=== PATIENT | male | born 1970 | race Caucasian/White ===

== ENCOUNTER 2016-12-28 13:51 | Emergency (ER) | payer OTHER ==
--- NOTE | 2016-12-28 16:15 | ED ORDER SUMMARY ---
..... Patient: TIM TAPIA OrderSheet [facility] VisitID: [id number] [place] [address] 46y, M Registration Date/Time: 12/28/2016 ORDER SHEET Weight: 96.1 kg (stated) Allergies: Penicillin GENERAL ORDERS: UA-Culture if indicated Urgent (14:06 12/28/2016 EKoroleva P.A.-C) (14:07 LWhalen R.N.) CBC w Diff Urgent (14:06 12/28/2016 EKoroleva P.A.-C) (Ack 14:09 KHoerner) (14:24 LWhalen R.N.) CMP Urgent (14:06 12/28/2016 EKoroleva P.A.-C) (Ack 14:09 KHoerner) (14:24 LWhalen R.N.) US Kidney/Renal Complete (No) Urgent (14:34 12/28/2016 EKoroleva P.A.-C) (Ack 14:35 KHoerner) MEDICATION ORDERS: IV FLUIDS: Toradol IV 30 mg (NOW) (14:06 12/28/2016 EKoroleva P.A.-C) (14:32 LWhalen R.N.) IV Saline Lock (14:06 12/28/2016 EKoroleva P.A.-C) (14:32 LWhalen R.N.) Dilaudid IV 1 mg (HIGH ALERT MEDICATION, NOW) (14:55 12/28/2016 EKoroleva P.A.-C) (15:05 LWhalen R.N.) Dilaudid IV 2 mg (HIGH ALERT MEDICATION, NOW) (16:16 12/28/2016 EKoroleva P.A.-C) (16:18 LWhalen R.N.) ORDER SHEET NOTES: [Electronically signed by Karen Dubois PBandarA.-C (16:45 12/28/2016)] [Electronically signed by Jaqueline Lemus R.N. (11:36 12/29/2016)] [Electronically locked/signed by Jaqueline Lemus R.N. (11:36 12/29/2016)]
--- NOTE | 2016-12-28 16:15 | ED ORDER SUMMARY ---
..... Patient: TIM TAPIA OrderSheet [facility] VisitID: [id number] [place] [address] 46y, M Registration Date/Time: 12/28/2016 ORDER SHEET Weight: 96.1 kg (stated) Allergies: Penicillin GENERAL ORDERS: UA-Culture if indicated Urgent (14:06 12/28/2016 EKoroleva P.A.-C) (14:07 LWhalen R.N.) CBC w Diff Urgent (14:06 12/28/2016 EKoroleva P.A.-C) (Ack 14:09 KHoerner) (14:24 LWhalen R.N.) CMP Urgent (14:06 12/28/2016 EKoroleva P.A.-C) (Ack 14:09 KHoerner) (14:24 LWhalen R.N.) US Kidney/Renal Complete (No) Urgent (14:34 12/28/2016 EKoroleva P.A.-C) (Ack 14:35 KHoerner) MEDICATION ORDERS: IV FLUIDS: Toradol IV 30 mg (NOW) (14:06 12/28/2016 EKoroleva P.A.-C) (14:32 LWhalen R.N.) IV Saline Lock (14:06 12/28/2016 EKoroleva P.A.-C) (14:32 LWhalen R.N.) Dilaudid IV 1 mg (HIGH ALERT MEDICATION, NOW) (14:55 12/28/2016 EKoroleva P.A.-C) (15:05 LWhalen R.N.) Dilaudid IV 2 mg (HIGH ALERT MEDICATION, NOW) (16:16 12/28/2016 EKoroleva P.A.-C) (16:18 LWhalen R.N.) ORDER SHEET NOTES: [Electronically signed by Karen Dubois PBandarA.-C (16:45 12/28/2016)] [Electronically signed by Jaqueline Lemus R.N. (11:36 12/29/2016)] [Electronically locked/signed by Jaqueline Lemus R.N. (11:36 12/29/2016)]
--- NOTE | 2016-12-28 16:15 | ED CLINICAL REPORT ---
Clinical Report - Physicians/Mid Levels [facility] [address] [place] [address] 12/28/2016 13:52 Patient: TIM TAPIA Time Seen: 1440 Dec 28 2016. Arrived- By private vehicle. Historian- patient. HISTORY OF PRESENT ILLNESS Chief Complaint: FLANK PAIN. This started just prior to arrival and is still present. It is described as "pain". No vomiting. (Patient presents with left flank pain radiating to his gone over the last 2 weeks, history of similar with nephrolithiasis. Restart urine. Denies dysuria urgency or frequency. Denies fevers. Denies emesis or diarrhea.). REVIEW OF SYSTEMS No constipation, black stools, urinary frequency or blurred vision. He has had difficulty with urination. All systems otherwise negative, except as recorded above. PAST HISTORY Problems: Fractured Metatarsal. Prior Injury, Same Area. Substance Abuse. Constipation. Abdominal Pain. Diverticulosis. Asthma. Gastroesophageal Reflux. Crush Injury. Hernia. Laceration. Soft Tissue Foreign Body. Contusion. Hypertension. Gastroesophageal Reflux Disease. Tetanus Status. Immunizations. Additional Surgeries: Hernia Repair. Stomach foreign body removed. Medications: Omeprazole Oral. Ventolin HFA Inhalation, as needed. Allergies: Penicillin. SOCIAL HISTORY Former smoker. No alcohol use. ADDITIONAL NOTES The nursing notes have been reviewed. PHYSICAL EXAM Vital Signs: 12/28/2016 16:25 BP: 138/100. HR: 77. RR: 18. O2 saturation: 97%. Temp: 98.4 F. Appearance: Alert. Eyes: Eyes normal inspection. ENT: Ears normal. Neck: Normal inspection. CVS: Normal heart rate and rhythm. Heart sounds normal. Respiratory: No respiratory distress. Breath sounds normal. No accessory muscle use. Abdomen: Soft. No mass. Femoral pulses equal. No abdominal tenderness. Back: Normal inspection. Skin: Skin warm. Neuro: Oriented X 3. LABS, X-RAYS, AND EKG Laboratory Tests: UA-Culture if indicated: (CAMI: 12/28/2016 14:00) ( MsgRcvd 12/28/2016 14:32) Final results Test Result Flag Units (Reference) URINE COLOR YELLOW URINE APPEARANCE HAZY URINE GLUCOSE NEGATIVE (NEGATIVE) URINE BILIRUBIN NEGATIVE (NEGATIVE) URINE KETONE NEGATIVE (NEGATIVE) URINE SPECIFIC GRAVITY 1.015 (1.010-1.030) URINE PH 6.5 (5.0-8.0) URINE PROTEIN NEGATIVE (NEGATIVE) URINE UROBILINOGEN 0.2 EU/dL (0.2-1.0) URINE NITRITE NEGATIVE (NEGATIVE) URINE BLOOD 3+ (NEGATIVE) URINE LEUK ESTERASE NEGATIVE (NEGATIVE) URINE RBC 75-100 rbc/hpf (0-1) URINE WBC 0-1 wbc/hpf (0-1) URINE EPITHELIAL CELLS 0-1 EPI/hpf (0-5) URINE BACTERIA NONE SEEN (NONE SEEN) URINE COMMENT CULT NOT INDICATED 3+ MUCUSURINE CULTURES ARE SET-UP BASED ON THE FOLLOWING CRITERIA:POSITIVE NITRITEPOSITIVE LEUKOCYTE ESTERASEGREATER THAN 10 WHITE BLOOD CELLSMODERATE (2+) OR GREATER BACTERIA CBC w Diff: (CAMI: 12/28/2016 14:25) ( [facility] 12/28/2016 14:37) Final results Test Result Flag Units (Reference) WHITE BLOOD COUNT 7.9 K/uL (4.5-11.5) RED BLOOD COUNT 4.42 L M/uL (4.50-5.90) HEMOGLOBIN 13.9 gm/dL (13.5-17.5) HEMATOCRIT 42.0 % (41.0-53.0) MEAN CELL VOLUME 95 fL (80-100) MEAN CORPUSCULAR HGB 32 pg (26-34) MEAN CORPUSCULAR HGB CONC 33 g/dL (31-37) RED CELL DISTRIBUTION WIDTH 13.8 % (11.6-14.8) PLATELET COUNT 236 K/uL (150-400) NEUTROPHIL % 71.2 % (50-75) LYMPH % 21.1 L % (25-40) MONO % 6.2 % (3-14) EOSINOPHIL % 1.2 % (0-4) BASOPHIL % 0.3 % (0-2) CMP: (CAMI: 12/28/2016 14:25) ( [facility] 12/28/2016 14:51) Final results Test Result Flag Units (Reference) GLUCOSE 114 H mg/dL (70-110) BUN 12 mg/dL (7-18) CREATININE 0.9 mg/dL (0.6-1.3) Estimated GFR >60 mL/min Estimated GFR- >60 mL/min Note: Persistent reduction over 3 months in eGFR<60 mL/min/1.73 m2 defines CKD. Patients with eGFR values>=60 mL/min/1.73 m2 may also have CKD if evidence ofpersistent proteinuria. Additional information may be foundat www.kidney.org. SODIUM 146 H mmol/L (136-145) POTASSIUM 4.0 mmol/L (3.5-5.1) CHLORIDE 108 H mmol/L (98-107) CARBON DIOXIDE 25 mmol/L (21-32) CALCIUM 8.9 mg/dL (8.5-10.1) TOTAL PROTEIN 7.3 g/dL (6.4-8.2) ALBUMIN 4.0 g/dL (3.3-5.0) BILIRUBIN, TOTAL 0.6 mg/dL (0.0-1.0) ALKALINE PHOSPHATASE 82 U/L (46-116) AST (SGOT) 20 U/L (15-37) ALT (SGPT) 34 U/L (12-78) . Note - Tests: (US: renal, no signs of large nephorlithiasis/ hydro). PROGRESS AND PROCEDURES Course of Care: no signs of acute surgical abdomen. 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 Signs of likely nephrolithiasis, ultrasound does not show any large nephrolithiasis, patient with history of similar, encourage patient to establish urology care. 12/28/2016 16:25 BP: 138/100. HR: 77. RR: 18. O2 saturation: 97%. Temp: 98.4 F. Patient is stable. Patient/family counseled. Disposition: Discharged. Condition: good. CLINICAL IMPRESSION Left renal colic with calculus with hematuria. No hydronephrosis or urinary tract infection. INSTRUCTIONS Drink plenty of fluids. (Urology: [phone]). Prescription Medications: Zofran (orally disintegrating tablets) 4 mg: take 1 orally every 6 hours for 3 days as needed for nausea. Dispense fifteen (15). Substitution is permissible. Percocet 5 mg/325 mg: take 1 tablet orally every 6 hours as needed for pain. Dispense twenty (20). Substitution is permissible. Flomax 0.4 mg: take 1 orally every 24 hours. Dispense ten (10). Substitution is permissible. Follow-up: Follow up with a specialist UROLOGY. (Electronically signed by Karen Dubois P.A.-C 12/28/2016 16:45)
--- NOTE | 2016-12-28 16:15 | ED NURSING NOTES ---
Clinical Report - Nurses [facility] [address] [place] [address] 12/28/2016 13:52 Patient: TIM TAPIA TRIAGE Triage time 13:57 Dec 28 2016. Acuity: LEVEL 3. Chief Complaint: PAIN WITH URINATION and (Aching left side in front and back). CATA COMA SCORE: Cata Coma Scale: 15- eyes open spontaneously (4); best verbal response- oriented x 4 (5); best motor response- obeys commands (6). --14:06 Jaqueline Lemus R.N. 13:57 12/28/16. BP: 137/107. HR: 98. RR: 18. O2 saturation: 98%. Temp: 98.1 F. Pain level now 8/10. --14:06 Jaqueline Lemus R.N. Weight: 96.1 kg stated. Height/Length: 72 inches Per Patient. BMI: 28.8. --13:59 Jaqueline Lemus R.N. Medications Ventolin HFA Inhalation, as needed. --13:57 Jaqueline Lemus R.N. Omeprazole Oral. --13:59 Jaqueline Lemus R.N. The following entry was struck by Jaqueline Lemus R.N., 13:59 (12/28/16) Reason - other. <<STRICKEN ENTRY-- Heartburn medication. --13:57 Jaqueline Lemus R.N. --END STRIKE>>. Allergies Penicillin. --13:57 Jaqueline Lemus R.N. History Arrived by private vehicle. Historian: patient. Onset. (2 weeks). He has had discomfort with urination and urgency of urination. No fever. PAST MEDICAL HX: Immunizations: up-to-date. SOCIAL HX: Former smoker, end date 2008. Occasional alcohol use; consumes two beers. No drug use. SELF HARM ASSESSMENT: A self harm assessment was performed. The patient answered "no" to the question "Have you recently felt down, depressed, or hopeless?" and "Do you have thoughts of harming or killing yourself?". FALL RISK ASSESSMENT: Fall risk assessment completed. No fall risk identified. NUTRITIONAL RISK ASSESSMENT: The nutritional risk assessment revealed no deficiencies. FUNCTIONAL ASSESSMENT: Functional assessment: no impairments noted. LEARNING NEEDS ASSESSMENT: The learning needs assessment revealed no barriers. ABUSE ASSESSMENT: Abuse assessment: (yes) The patient was asked "Do you feel safe in your home?". SKIN INTEGRITY ASSESSMENT: Skin integrity risk assessment completed. No skin integrity risk identified. --14:06 Jaqueline Lemus R.N. PROBLEMS: Fractured Metatarsal. Prior Injury, Same Area. Substance Abuse. Constipation. Abdominal Pain. Diverticulosis. Asthma. Gastroesophageal Reflux. Crush Injury. Hernia. Laceration. Soft Tissue Foreign Body. Contusion. Hypertension. Gastroesophageal Reflux Disease. Tetanus Status. Immunizations. --13:58 Jaqueline Lemus R.N. Ureterolithiasis [RuleOut]. Hematuria [RuleOut]. --13:58 Jaqueline Lemus R.N. ADDITIONAL SURGERIES: Hernia Repair. Stomach foreign body removed. --13:58 Jaqueline Lemus R.N. Interventions ID band on patient. --14:06 Jaqueline Lemus R.N. PHYSICAL ASSESSMENT Ambulatory to room. GENERAL / NEURO / PSYCH: Alert. Oriented X 4. Appears in no acute distress. HEENT: Mucous membranes are pink. RESPIRATORY: Respirations not labored. Breath sounds within normal limits. CVS: Normal heart rate and rhythm. GI / : Abdominal tenderness. Burning with urination. SKIN: Skin is warm and dry. --14:07 Jaqueline Lemus R.N. NURSING PROGRESS NOTES The initial plan of care for this patient includes an assessment with efforts to address patient positioning, appropriate ambient lighting and comfortable environmental temperature; impairment of the genitourinary system. Pulse oximeter and NIBP monitor placed on patient. Patient gowned. Head of bed elevated 75 degrees. Reassurance given. Call light placed in reach. Side rails up x 1. Bed placed in lowest position. Brakes of bed on. --14:07 Jaqueline Lemus R.N. 14:32 12/28/2016 Site #1 started via IV in the right antecubital space with an 20g angiocath, with aseptic technique and good blood return; one attempt. Blood drawn: rainbow set. Labeled in the presence of the patient and sent to the lab. Saline lock flushed with 10 mL saline. --14:32 Jaqueline Lemus R.N. 14:32 12/28/2016 Toradol IVP 30 mg given over 2 minute(s) via site #1. Allergies verified and confirmed 5 rights. IV patency established. IV site checked: no pain, redness, or swelling. IV flushed thoroughly pre- and post-medication administration. --14:32 Jaqueline Lemus R.N. 15:05 12/28/2016 Dilaudid (HYDROmorphone HCl PF) IVP 1 mg given over 2 minute(s) via site #1. Allergies verified, confirmed 5 rights and sedative warning given to the patient. IV patency established. IV site checked: no pain, redness, or swelling. IV flushed thoroughly pre- and post-medication administration. --15:05 Jaqueline Lemus R.N. 16:18 12/28/2016 Dilaudid (HYDROmorphone HCl PF) IVP 2 mg given over 2 minute(s) via site #1. Allergies verified, confirmed 5 rights and sedative warning given to the patient. IV patency established. IV site checked: no pain, redness, or swelling. IV flushed thoroughly pre- and post-medication administration. --16:18 Jaqueline Lemus R.N. DISPOSITION / DISCHARGE Departure time: Dec 28 2016. Condition at departure: improved. No learning barriers present. Discharge instructions provided and reviewed with the patient. Reviewed warnings. Reviewed medication(s). Treatments reviewed. Reviewed referrals. Patient verbalized understanding. Written instructions provided in Slovenian. The patient was discharged home. He left the Emergency Department ambulatory and via (pt walked here lives next door). --16:29 Jaqueline Lemus R.N. 16:25 12/28/16. BP: 138/100. HR: 77. RR: 18. O2 saturation: 97%. Temp: 98.4 F. Pain level now 5/10. --16:29 Mariah, Jaqueline, R.N. Locked/Released at 12/29/2016 11:36 by Jaqueline Lemus R.N.
--- NOTE | 2016-12-28 16:15 | ED CLINICAL REPORT ---
Clinical Report - Physicians/Mid Levels [facility] [address] [place] [address] 12/28/2016 13:52 Patient: TIM TAPIA Time Seen: 1440 Dec 28 2016. Arrived- By private vehicle. Historian- patient. HISTORY OF PRESENT ILLNESS Chief Complaint: FLANK PAIN. This started just prior to arrival and is still present. It is described as "pain". No vomiting. (Patient presents with left flank pain radiating to his gone over the last 2 weeks, history of similar with nephrolithiasis. Restart urine. Denies dysuria urgency or frequency. Denies fevers. Denies emesis or diarrhea.). REVIEW OF SYSTEMS No constipation, black stools, urinary frequency or blurred vision. He has had difficulty with urination. All systems otherwise negative, except as recorded above. PAST HISTORY Problems: Fractured Metatarsal. Prior Injury, Same Area. Substance Abuse. Constipation. Abdominal Pain. Diverticulosis. Asthma. Gastroesophageal Reflux. Crush Injury. Hernia. Laceration. Soft Tissue Foreign Body. Contusion. Hypertension. Gastroesophageal Reflux Disease. Tetanus Status. Immunizations. Additional Surgeries: Hernia Repair. Stomach foreign body removed. Medications: Omeprazole Oral. Ventolin HFA Inhalation, as needed. Allergies: Penicillin. SOCIAL HISTORY Former smoker. No alcohol use. ADDITIONAL NOTES The nursing notes have been reviewed. PHYSICAL EXAM Vital Signs: 12/28/2016 16:25 BP: 138/100. HR: 77. RR: 18. O2 saturation: 97%. Temp: 98.4 F. Appearance: Alert. Eyes: Eyes normal inspection. ENT: Ears normal. Neck: Normal inspection. CVS: Normal heart rate and rhythm. Heart sounds normal. Respiratory: No respiratory distress. Breath sounds normal. No accessory muscle use. Abdomen: Soft. No mass. Femoral pulses equal. No abdominal tenderness. Back: Normal inspection. Skin: Skin warm. Neuro: Oriented X 3. LABS, X-RAYS, AND EKG Laboratory Tests: UA-Culture if indicated: (CAMI: 12/28/2016 14:00) ( MsgRcvd 12/28/2016 14:32) Final results Test Result Flag Units (Reference) URINE COLOR YELLOW URINE APPEARANCE HAZY URINE GLUCOSE NEGATIVE (NEGATIVE) URINE BILIRUBIN NEGATIVE (NEGATIVE) URINE KETONE NEGATIVE (NEGATIVE) URINE SPECIFIC GRAVITY 1.015 (1.010-1.030) URINE PH 6.5 (5.0-8.0) URINE PROTEIN NEGATIVE (NEGATIVE) URINE UROBILINOGEN 0.2 EU/dL (0.2-1.0) URINE NITRITE NEGATIVE (NEGATIVE) URINE BLOOD 3+ (NEGATIVE) URINE LEUK ESTERASE NEGATIVE (NEGATIVE) URINE RBC 75-100 rbc/hpf (0-1) URINE WBC 0-1 wbc/hpf (0-1) URINE EPITHELIAL CELLS 0-1 EPI/hpf (0-5) URINE BACTERIA NONE SEEN (NONE SEEN) URINE COMMENT CULT NOT INDICATED 3+ MUCUSURINE CULTURES ARE SET-UP BASED ON THE FOLLOWING CRITERIA:POSITIVE NITRITEPOSITIVE LEUKOCYTE ESTERASEGREATER THAN 10 WHITE BLOOD CELLSMODERATE (2+) OR GREATER BACTERIA CBC w Diff: (CAMI: 12/28/2016 14:25) ( [facility] 12/28/2016 14:37) Final results Test Result Flag Units (Reference) WHITE BLOOD COUNT 7.9 K/uL (4.5-11.5) RED BLOOD COUNT 4.42 L M/uL (4.50-5.90) HEMOGLOBIN 13.9 gm/dL (13.5-17.5) HEMATOCRIT 42.0 % (41.0-53.0) MEAN CELL VOLUME 95 fL (80-100) MEAN CORPUSCULAR HGB 32 pg (26-34) MEAN CORPUSCULAR HGB CONC 33 g/dL (31-37) RED CELL DISTRIBUTION WIDTH 13.8 % (11.6-14.8) PLATELET COUNT 236 K/uL (150-400) NEUTROPHIL % 71.2 % (50-75) LYMPH % 21.1 L % (25-40) MONO % 6.2 % (3-14) EOSINOPHIL % 1.2 % (0-4) BASOPHIL % 0.3 % (0-2) CMP: (CAMI: 12/28/2016 14:25) ( [facility] 12/28/2016 14:51) Final results Test Result Flag Units (Reference) GLUCOSE 114 H mg/dL (70-110) BUN 12 mg/dL (7-18) CREATININE 0.9 mg/dL (0.6-1.3) Estimated GFR >60 mL/min Estimated GFR- >60 mL/min Note: Persistent reduction over 3 months in eGFR<60 mL/min/1.73 m2 defines CKD. Patients with eGFR values>=60 mL/min/1.73 m2 may also have CKD if evidence ofpersistent proteinuria. Additional information may be foundat www.kidney.org. SODIUM 146 H mmol/L (136-145) POTASSIUM 4.0 mmol/L (3.5-5.1) CHLORIDE 108 H mmol/L (98-107) CARBON DIOXIDE 25 mmol/L (21-32) CALCIUM 8.9 mg/dL (8.5-10.1) TOTAL PROTEIN 7.3 g/dL (6.4-8.2) ALBUMIN 4.0 g/dL (3.3-5.0) BILIRUBIN, TOTAL 0.6 mg/dL (0.0-1.0) ALKALINE PHOSPHATASE 82 U/L (46-116) AST (SGOT) 20 U/L (15-37) ALT (SGPT) 34 U/L (12-78) . Note - Tests: (US: renal, no signs of large nephorlithiasis/ hydro). PROGRESS AND PROCEDURES Course of Care: no signs of acute surgical abdomen. 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 Signs of likely nephrolithiasis, ultrasound does not show any large nephrolithiasis, patient with history of similar, encourage patient to establish urology care. 12/28/2016 16:25 BP: 138/100. HR: 77. RR: 18. O2 saturation: 97%. Temp: 98.4 F. Patient is stable. Patient/family counseled. Disposition: Discharged. Condition: good. CLINICAL IMPRESSION Left renal colic with calculus with hematuria. No hydronephrosis or urinary tract infection. INSTRUCTIONS Drink plenty of fluids. (Urology: [phone]). Prescription Medications: Zofran (orally disintegrating tablets) 4 mg: take 1 orally every 6 hours for 3 days as needed for nausea. Dispense fifteen (15). Substitution is permissible. Percocet 5 mg/325 mg: take 1 tablet orally every 6 hours as needed for pain. Dispense twenty (20). Substitution is permissible. Flomax 0.4 mg: take 1 orally every 24 hours. Dispense ten (10). Substitution is permissible. Follow-up: Follow up with a specialist UROLOGY. (Electronically signed by Karen Dubois P.A.-C 12/28/2016 16:45)
--- NOTE | 2016-12-28 20:14 | DIAGNOSTIC IMAGING REPORT ---
PROCEDURE: US KIDNEY/RENAL COMPLETE INDICATION: Left abdomen/flank pain TECHNIQUE: Jacinto scale and color Doppler sonographic imaging of the kidneys and urinary bladder was obtained. Intrarenal resistive indices were calculated when appropriate. COMPARISON: CT abdomen pelvis 04/19/2015 FINDINGS: The right kidney measures 11.0 x 6.5 x 4.9 cm. Normal cortical thickness and echogenicity. No hydronephrosis, cyst, solid mass, or shadowing calculus. Normal color Doppler blood flow throughout the kidney. Resistive index in the intraparenchymal artery is 0.57 (midpole) The left kidney measures 11.6 x 6.2 x 5.4 cm Normal cortical thickness and echogenicity. No hydronephrosis, cyst, solid mass, or shadowing calculus. Normal color Doppler blood flow throughout the kidney. Resistive indices in the intrarenal parenchymal arteries range from 0.56-0.59. The filled urinary bladder has a volume of 23 ml and a post void residual of zero. The urinary bladder wall is uniform in thickness without suspicious thickening or irregularity. No bladder mass or debris. The left ureteral jet was not well seen. The right is normal. The visible portion the prostate gland measures approximately 4.5 x 4.0 x 2.4 cm with coarse internal calcification. IMPRESSION: 1. Normal renal morphology. No intrarenal calculi or obstructive uropathy. 2. Normal urinary bladder and prostate morphology.
--- NOTE | 2016-12-29 11:36 | ED MAR SUMMARY ---
..... Medication Administration Record [facility] [address] [place] [address] Patient: TIM TAPIA Visit ID: [id number] 46y, M Weight: 96.1 kg Height/Length: 72 in BMI: 28.8 ALLERGIES: Penicillin Given 14:32 12/28/2016 Jaqueline Lemus R.N. Medication Administered: TORADOL [IVP], Dose: 30 mg IVP over 2 minute(s), Site: #1 right AC. Medication Ordered: Toradol IV 30 mg (NOW). Given 15:05 12/28/2016 Jaqueline Lemus R.N. Medication Administered: DILAUDID [IVP] (HYDROMORPHONE HCL PF), Dose: 1 mg IVP over 2 minute(s), Site: #1 right AC. Medication Ordered: Dilaudid IV 1 mg (HIGH ALERT MEDICATION, NOW). Given 16:18 12/28/2016 Jaqueline Lemus R.N. Medication Administered: DILAUDID [IVP] (HYDROMORPHONE HCL PF), Dose: 2 mg IVP over 2 minute(s), Site: #1 right AC. Medication Ordered: Dilaudid IV 2 mg (HIGH ALERT MEDICATION, NOW).
--- NOTE | 2016-12-29 11:36 | ED MAR SUMMARY ---
..... Medication Administration Record [facility] [address] [place] [address] Patient: TIM TAPIA Visit ID: [id number] 46y, M Weight: 96.1 kg Height/Length: 72 in BMI: 28.8 ALLERGIES: Penicillin Given 14:32 12/28/2016 Jaqueline Lemus R.N. Medication Administered: TORADOL [IVP], Dose: 30 mg IVP over 2 minute(s), Site: #1 right AC. Medication Ordered: Toradol IV 30 mg (NOW). Given 15:05 12/28/2016 Jaquleine Lemus R.N. Medication Administered: DILAUDID [IVP] (HYDROMORPHONE HCL PF), Dose: 1 mg IVP over 2 minute(s), Site: #1 right AC. Medication Ordered: Dilaudid IV 1 mg (HIGH ALERT MEDICATION, NOW). Given 16:18 12/28/2016 Jaqueline Lemus R.N. Medication Administered: DILAUDID [IVP] (HYDROMORPHONE HCL PF), Dose: 2 mg IVP over 2 minute(s), Site: #1 right AC. Medication Ordered: Dilaudid IV 2 mg (HIGH ALERT MEDICATION, NOW).
--- NOTE | 2016-12-29 11:36 | ED MED RECONCILIATION SUMMARY ---
Patient: TIM TAPIA Medication Reconciliation Report [facility] VisitID: [id number] [address] [place] [address] 46y, M Registration Date/Time: 12/28/2016 Weight: 96.1 kg Height/Length: 72 in. BMI: 28.8 ALLERGIES: Penicillin The patient's Home Medications are listed below: THE FOLLOWING MEDICATIONS NEED TO BE RECONCILED: Omeprazole Oral Ventolin HFA Inhalation The source(s) of the original Home Medication information: Not obtained. The following Medications were given to the patient in the Emergency Department: Toradol [IVP] IVP 30 mg, administered: 12/28/2016 2:32:00 PM Dilaudid [IVP] IVP 1 mg, administered: 12/28/2016 3:05:00 PM Dilaudid [IVP] IVP 2 mg, administered: 12/28/2016 4:18:00 PM The following Medications were prescribed to the patient: Zofran (orally disintegrating tablets) 4 mg: take 1 orally every 6 hours for 3 days as needed for nausea. Dispense fifteen (15). Substitution is permissible. -- Rafaelolemary, Karen, P.A.-C Percocet 5 mg/325 mg: take 1 tablet orally every 6 hours as needed for pain. Dispense twenty (20). Substitution is permissible. -- Karen Dubois, P.A.-C Flomax 0.4 mg: take 1 orally every 24 hours. Dispense ten (10). Substitution is permissible. -- Karen Dubois, P.A.-C
--- NOTE | 2016-12-29 11:36 | ED DISCHARGE INSTRUCTIONS ---
Patient: TIM TAPIA General Instructions [facility] VisitID: [id number] [place] [address] 46y, M Registration Date/Time: 12/28/2016 Left renal colic with calculus with hematuria. No hydronephrosis or urinary tract infection. INSTRUCTIONS Drink plenty of fluids. (Urology: [phone]). Prescription Medications: Zofran (orally disintegrating tablets) 4 mg: take 1 orally every 6 hours for 3 days as needed for nausea. Dispense fifteen (15). Substitution is permissible. Percocet 5 mg/325 mg: take 1 tablet orally every 6 hours as needed for pain. Dispense twenty (20). Substitution is permissible. Flomax 0.4 mg: take 1 orally every 24 hours. Dispense ten (10). Substitution is permissible. Follow-up: Follow up with a specialist UROLOGY. ADDITIONAL INFORMATION Kidney Stone (W/ Colic) The sharp cramping pain and nausea/vomiting that you have is due to a small stone which has formed in the kidney and is now passing down a narrow tube (ureter) on its way to your bladder. Once it reaches your bladder, the pain will stop. The stone may pass in your urine stream in one piece. [The size may be 1/16" to 1/4" (1-6mm)]. Or, the stone may also break up into francie fragments which you may not even notice. Once you have had a kidney stone, you are at risk for developing another one in the future. Home Care: Drink plenty of fluids (at least 8 to 10 glasses of water a day). Most stones will pass on their own, but may take from a few hours to a few days. Sometimes the stone is too large to pass by itself and special methods will have to be used to remove the stone. Each time you urinate, do so in a jar. Pour the urine from the jar through the strainer and into the toilet. Continue doing this until 24 hours after your pain stops. By then, if there was a kidney stone, it should pass from your bladder. Some stones dissolve into sand-like particles and pass right through the strainer. In that case, you wont ever see a stone. Save any stone that you find in the strainer and bring it to your doctor for analysis. It may be possible to prevent certain types of stones from forming. Therefore, it is important to know what kind of stone you have. Try to stay as active as possible since this will help the stone pass. Do not stay in bed unless your pain prevents you from getting up. You may notice a red, pink or brown color to your urine. This is normal while passing a kidney stone. Follow Up with your doctor or return to this facility if the pain lasts more than 48 hours. Get Prompt Medical Attention if any of the following occur: Pain that is not controlled by the medicine given Repeated vomiting or unable to keep down fluids Weakness, dizziness or fainting Fever of 100.4F (38C) or higher, or as directed by your healthcare provider Passage of solid red or brown urine (can't see through it) or urine with lots of blood clots Unable to pass urine for 8 hours and increasing bladder pressure Oxycodone Hydrochloride, Acetaminophen Oral tablet What is this medicine? ACETAMINOPHEN; OXYCODONE (a set a BIRGIT piyush fen; ox i KOE done) is a pain reliever. It is used to treat mild to moderate pain. How should I use this medicine? Take this medicine by mouth with a full glass of water. Follow the directions on the prescription label. Take your medicine at regular intervals. Do not take your medicine more often than directed. Talk to your cabinet builder regarding the use of this medicine in children. Special care may be needed. Patients over 65 years old may have a stronger reaction and need a smaller dose. What side effects may I notice from receiving this medicine? Side effects that you should report to your doctor or health long term care pharmacist as soon as possible: allergic reactions like skin rash, itching or hives, swelling of the face, lips, or tongue breathing difficulties, wheezing confusion light headedness or fainting spells severe stomach pain yellowing of the skin or the whites of the eyes Side effects that usually do not require medical attention (report to your doctor or health long term care pharmacist if they continue or are bothersome): dizziness drowsiness nausea vomiting What may interact with this medicine? alcohol antihistamines barbiturates like amobarbital, butalbital, butabarbital, methohexital, pentobarbital, phenobarbital, thiopental, and secobarbital benztropine drugs for bladder problems like solifenacin, trospium, oxybutynin, tolterodine, hyoscyamine, and methscopolamine drugs for breathing problems like ipratropium and tiotropium drugs for certain stomach or intestine problems like propantheline, homatropine methylbromide, glycopyrrolate, atropine, belladonna, and dicyclomine general anesthetics like etomidate, ketamine, nitrous oxide, propofol, desflurane, enflurane, halothane, isoflurane, and sevoflurane medicines for depression, anxiety, or psychotic disturbances medicines for sleep muscle relaxants naltrexone narcotic medicines (opiates) for pain phenothiazines like perphenazine, thioridazine, chlorpromazine, mesoridazine, fluphenazine, prochlorperazine, promazine, and trifluoperazine scopolamine tramadol trihexyphenidyl What if I miss a dose? If you miss a dose, take it as soon as you can. If it is almost time for your next dose, take only that dose. Do not take double or extra doses. Where should I keep my medicine? Keep out of the reach of children. This medicine can be abused. Keep your medicine in a safe place to protect it from theft. Do not share this medicine with anyone. Selling or giving away this medicine is dangerous and against the law. Store at room temperature between 20 and 25 degrees C (68 and 77 degrees F). Keep container tightly closed. Protect from light. This medicine may cause accidental overdose and if it is taken by other adults, children, or pets. Flush any unused medicine down the toilet to reduce the chance of harm. Do not use the medicine after the expiration date. What should I tell my health care provider before I take this medicine? They need to know if you have any of these conditions: brain tumor Crohn's disease, inflammatory bowel disease, or ulcerative colitis drink more than 3 alcohol containing drinks per day drug abuse or addiction head injury heart or circulation problems kidney disease or problems going to the bathroom liver disease lung disease, asthma, or breathing problems an unusual or allergic reaction to acetaminophen, oxycodone, other opioid analgesics, other medicines, foods, dyes, or preservatives or trying to get breast-feeding What should I watch for while using this medicine? Tell your doctor or health long term care pharmacist if your pain does not go away, if it gets worse, or if you have new or a different type of pain. You may develop tolerance to the medicine. Tolerance means that you will need a higher dose of the medication for pain relief. Tolerance is normal and is expected if you take this medicine for a long time. Do not suddenly stop taking your medicine because you may develop a severe reaction. Your body becomes used to the medicine. This does NOT mean you are addicted. Addiction is a behavior related to getting and using a drug for a non-medical reason. If you have pain, you have a medical reason to take pain medicine. Your doctor will tell you how much medicine to take. If your doctor wants you to stop the medicine, the dose will be slowly lowered over time to avoid any side effects. You may get drowsy or dizzy. Do not drive, use machinery, or do anything that needs mental alertness until you know how this medicine affects you. Do not stand or sit up quickly, especially if you are an older patient. This reduces the risk of dizzy or fainting spells. Alcohol may interfere with the effect of this medicine. Avoid alcoholic drinks. There are different types of narcotic medicines (opiates) for pain. If you take more than one type at the same time, you may have more side effects. Give your health care provider a list of all medicines you use. Your doctor will tell you how much medicine to take. Do not take more medicine than directed. Call emergency for help if you have problems breathing. The medicine will cause constipation. Try to have a bowel movement at least every 2 to 3 days. If you do not have a bowel movement for 3 days, call your doctor or health long term care pharmacist. Do not take Tylenol (acetaminophen) or medicines that have acetaminophen with this medicine. Too much acetaminophen can be very dangerous. Many nonprescription medicines contain acetaminophen. Always read the labels carefully to avoid taking more acetaminophen. You have been given the following additional information: Kidney Stone W/ Colic Oxycodone Hydrochloride, Acetaminophen Oral tablet (Electronically signed by Karen Dubois P.A.-C 12/28/2016 16:45)
--- NOTE | 2016-12-29 11:36 | ED MED RECONCILIATION SUMMARY ---
Patient: TIM TAPIA Medication Reconciliation Report [facility] VisitID: [id number] [address] [place] [address] 46y, M Registration Date/Time: 12/28/2016 Weight: 96.1 kg Height/Length: 72 in. BMI: 28.8 ALLERGIES: Penicillin The patient's Home Medications are listed below: THE FOLLOWING MEDICATIONS NEED TO BE RECONCILED: Omeprazole Oral Ventolin HFA Inhalation The source(s) of the original Home Medication information: Not obtained. The following Medications were given to the patient in the Emergency Department: Toradol [IVP] IVP 30 mg, administered: 12/28/2016 2:32:00 PM Dilaudid [IVP] IVP 1 mg, administered: 12/28/2016 3:05:00 PM Dilaudid [IVP] IVP 2 mg, administered: 12/28/2016 4:18:00 PM The following Medications were prescribed to the patient: Zofran (orally disintegrating tablets) 4 mg: take 1 orally every 6 hours for 3 days as needed for nausea. Dispense fifteen (15). Substitution is permissible. -- Rafaelolemary, Karen, P.A.-C Percocet 5 mg/325 mg: take 1 tablet orally every 6 hours as needed for pain. Dispense twenty (20). Substitution is permissible. -- Karen Dubois, P.A.-C Flomax 0.4 mg: take 1 orally every 24 hours. Dispense ten (10). Substitution is permissible. -- Karen Dubois, P.A.-C
--- NOTE | 2016-12-29 11:36 | ED DISCHARGE INSTRUCTIONS ---
Patient: TIM TAPIA General Instructions [facility] VisitID: [id number] [place] [address] 46y, M Registration Date/Time: 12/28/2016 Left renal colic with calculus with hematuria. No hydronephrosis or urinary tract infection. INSTRUCTIONS Drink plenty of fluids. (Urology: [phone]). Prescription Medications: Zofran (orally disintegrating tablets) 4 mg: take 1 orally every 6 hours for 3 days as needed for nausea. Dispense fifteen (15). Substitution is permissible. Percocet 5 mg/325 mg: take 1 tablet orally every 6 hours as needed for pain. Dispense twenty (20). Substitution is permissible. Flomax 0.4 mg: take 1 orally every 24 hours. Dispense ten (10). Substitution is permissible. Follow-up: Follow up with a specialist UROLOGY. ADDITIONAL INFORMATION Kidney Stone (W/ Colic) The sharp cramping pain and nausea/vomiting that you have is due to a small stone which has formed in the kidney and is now passing down a narrow tube (ureter) on its way to your bladder. Once it reaches your bladder, the pain will stop. The stone may pass in your urine stream in one piece. [The size may be 1/16" to 1/4" (1-6mm)]. Or, the stone may also break up into francie fragments which you may not even notice. Once you have had a kidney stone, you are at risk for developing another one in the future. Home Care: Drink plenty of fluids (at least 8 to 10 glasses of water a day). Most stones will pass on their own, but may take from a few hours to a few days. Sometimes the stone is too large to pass by itself and special methods will have to be used to remove the stone. Each time you urinate, do so in a jar. Pour the urine from the jar through the strainer and into the toilet. Continue doing this until 24 hours after your pain stops. By then, if there was a kidney stone, it should pass from your bladder. Some stones dissolve into sand-like particles and pass right through the strainer. In that case, you wont ever see a stone. Save any stone that you find in the strainer and bring it to your doctor for analysis. It may be possible to prevent certain types of stones from forming. Therefore, it is important to know what kind of stone you have. Try to stay as active as possible since this will help the stone pass. Do not stay in bed unless your pain prevents you from getting up. You may notice a red, pink or brown color to your urine. This is normal while passing a kidney stone. Follow Up with your doctor or return to this facility if the pain lasts more than 48 hours. Get Prompt Medical Attention if any of the following occur: Pain that is not controlled by the medicine given Repeated vomiting or unable to keep down fluids Weakness, dizziness or fainting Fever of 100.4F (38C) or higher, or as directed by your healthcare provider Passage of solid red or brown urine (can't see through it) or urine with lots of blood clots Unable to pass urine for 8 hours and increasing bladder pressure Oxycodone Hydrochloride, Acetaminophen Oral tablet What is this medicine? ACETAMINOPHEN; OXYCODONE (a set a BIRGIT piyush fen; ox i KOE done) is a pain reliever. It is used to treat mild to moderate pain. How should I use this medicine? Take this medicine by mouth with a full glass of water. Follow the directions on the prescription label. Take your medicine at regular intervals. Do not take your medicine more often than directed. Talk to your bottle washing machine operator regarding the use of this medicine in children. Special care may be needed. Patients over 65 years old may have a stronger reaction and need a smaller dose. What side effects may I notice from receiving this medicine? Side effects that you should report to your doctor or health home health care case manager as soon as possible: allergic reactions like skin rash, itching or hives, swelling of the face, lips, or tongue breathing difficulties, wheezing confusion light headedness or fainting spells severe stomach pain yellowing of the skin or the whites of the eyes Side effects that usually do not require medical attention (report to your doctor or health home health care case manager if they continue or are bothersome): dizziness drowsiness nausea vomiting What may interact with this medicine? alcohol antihistamines barbiturates like amobarbital, butalbital, butabarbital, methohexital, pentobarbital, phenobarbital, thiopental, and secobarbital benztropine drugs for bladder problems like solifenacin, trospium, oxybutynin, tolterodine, hyoscyamine, and methscopolamine drugs for breathing problems like ipratropium and tiotropium drugs for certain stomach or intestine problems like propantheline, homatropine methylbromide, glycopyrrolate, atropine, belladonna, and dicyclomine general anesthetics like etomidate, ketamine, nitrous oxide, propofol, desflurane, enflurane, halothane, isoflurane, and sevoflurane medicines for depression, anxiety, or psychotic disturbances medicines for sleep muscle relaxants naltrexone narcotic medicines (opiates) for pain phenothiazines like perphenazine, thioridazine, chlorpromazine, mesoridazine, fluphenazine, prochlorperazine, promazine, and trifluoperazine scopolamine tramadol trihexyphenidyl What if I miss a dose? If you miss a dose, take it as soon as you can. If it is almost time for your next dose, take only that dose. Do not take double or extra doses. Where should I keep my medicine? Keep out of the reach of children. This medicine can be abused. Keep your medicine in a safe place to protect it from theft. Do not share this medicine with anyone. Selling or giving away this medicine is dangerous and against the law. Store at room temperature between 20 and 25 degrees C (68 and 77 degrees F). Keep container tightly closed. Protect from light. This medicine may cause accidental overdose and if it is taken by other adults, children, or pets. Flush any unused medicine down the toilet to reduce the chance of harm. Do not use the medicine after the expiration date. What should I tell my health care provider before I take this medicine? They need to know if you have any of these conditions: brain tumor Crohn's disease, inflammatory bowel disease, or ulcerative colitis drink more than 3 alcohol containing drinks per day drug abuse or addiction head injury heart or circulation problems kidney disease or problems going to the bathroom liver disease lung disease, asthma, or breathing problems an unusual or allergic reaction to acetaminophen, oxycodone, other opioid analgesics, other medicines, foods, dyes, or preservatives or trying to get breast-feeding What should I watch for while using this medicine? Tell your doctor or health home health care case manager if your pain does not go away, if it gets worse, or if you have new or a different type of pain. You may develop tolerance to the medicine. Tolerance means that you will need a higher dose of the medication for pain relief. Tolerance is normal and is expected if you take this medicine for a long time. Do not suddenly stop taking your medicine because you may develop a severe reaction. Your body becomes used to the medicine. This does NOT mean you are addicted. Addiction is a behavior related to getting and using a drug for a non-medical reason. If you have pain, you have a medical reason to take pain medicine. Your doctor will tell you how much medicine to take. If your doctor wants you to stop the medicine, the dose will be slowly lowered over time to avoid any side effects. You may get drowsy or dizzy. Do not drive, use machinery, or do anything that needs mental alertness until you know how this medicine affects you. Do not stand or sit up quickly, especially if you are an older patient. This reduces the risk of dizzy or fainting spells. Alcohol may interfere with the effect of this medicine. Avoid alcoholic drinks. There are different types of narcotic medicines (opiates) for pain. If you take more than one type at the same time, you may have more side effects. Give your health care provider a list of all medicines you use. Your doctor will tell you how much medicine to take. Do not take more medicine than directed. Call emergency for help if you have problems breathing. The medicine will cause constipation. Try to have a bowel movement at least every 2 to 3 days. If you do not have a bowel movement for 3 days, call your doctor or health home health care case manager. Do not take Tylenol (acetaminophen) or medicines that have acetaminophen with this medicine. Too much acetaminophen can be very dangerous. Many nonprescription medicines contain acetaminophen. Always read the labels carefully to avoid taking more acetaminophen. You have been given the following additional information: Kidney Stone W/ Colic Oxycodone Hydrochloride, Acetaminophen Oral tablet (Electronically signed by Karen Dubois P.A.-C 12/28/2016 16:45)
== END 2016-12-28 16:30 | disposition home or self-care (01) ==
LOC: ED SRH 13:51
DX: N20.0 Calculus of kidney (principal); R31.9 Hematuria, unspecified; K21.9 Gastro-esophageal reflux disease without esophagitis; J45.909 Unspecified asthma, uncomplicated; Z79.899 Other long term (current) drug therapy; I10 Essential (primary) hypertension; Z87.891 Personal history of nicotine dependence; Z88.0 Allergy status to penicillin
CPT/HCPCS: 90004; 90100; 95059

== ENCOUNTER 2017-01-09 16:14 | Emergency (ER) | payer OTHER ==
--- NOTE | 2017-01-09 16:56 | ED ORDER SUMMARY ---
..... Patient: TIM TAPIA OrderSheet [facility] VisitID: [id number] [place] [address] 46y, M Registration Date/Time: 01/09/2017 ORDER SHEET Weight: 96.1 kg (stated) Allergies: Penicillin GENERAL ORDERS: CBC w Diff Urgent (16:32 01/09/2017 EKoroleva P.A.-C) (Ack 16:41 KHoerner) (16:51 JSimbeck R.N.) CMP Urgent (16:32 01/09/2017 EKoroleva P.A.-C) (Ack 16:41 KHoerner) (16:51 JSimbeck R.N.) UA-Culture if indicated Urgent (16:32 01/09/2017 EKoroleva P.A.-C) (Ack 16:41 KHoerner) (17:35 JSimbeck R.N.) Amylase Urgent (16:32 01/09/2017 EKoroleva P.A.-C) (Ack 16:41 KHoerner) (16:51 JSimbeck R.N.) Lipase Urgent (16:32 01/09/2017 EKoroleva P.A.-C) (Ack 16:41 KHoerner) (16:51 JSimbeck R.N.) CT Abd/Pel w Cont (No) (see lab) Urgent (17:59 01/09/2017 EKoroleva P.A.-C) (18:20 MCampbell) MEDICATION ORDERS: IV FLUIDS: IV NS : initial bolus 1000 mL (1000 mL/hr), then 1000 mL/hr for X1 (NOW); Willie (16:32 01/09/2017 EKoroleva P.A.-C) (16:52 JSimbeck R.N.) Toradol IV 30 mg (NOW) (16:32 01/09/2017 EKoroleva P.A.-C) (16:53 JSimbeck R.N.) ORDER SHEET NOTES: [Electronically signed by Lona Anguiano (18:47 01/09/2017)] [Electronically signed by KoroleKaren hernandez P.A.-C (19:11 01/09/2017)] [Electronically locked/signed by Lona Anguiano (18:47 01/09/2017)]
--- NOTE | 2017-01-09 16:56 | ED NURSING NOTES ---
Clinical Report - Nurses [facility] [place] [address] 01/09/2017 16:14 Patient: TIM TAPIA TRIAGE Triage time 16:25. Acuity: LEVEL 3. Chief Complaint: ABDOMINAL PAIN. Alert. No acute distress. ROSARIO COMA SCORE: [place] Coma Scale: 15- eyes open spontaneously (4); best verbal response- oriented x 4 (5); best motor response- obeys commands (6). --16:33 Nell Mejia R.N. 16:25 01/09/17. BP: 135/99. HR: 88. RR: 16. O2 saturation: 97% on room air. Temp: 98.3 F (oral). Pain level now: 02/12. --16:33 Nell Mejia R.N. Weight: 96.1 kg stated. Height/Length: 72 inches Per Patient. BMI: 28.8. --16:32 Nell Mejia R.N. Medications Omeprazole Oral. Ventolin HFA Inhalation, as needed. --16:26 Nell Mejia R.N. Flomax Oral. Percocet Oral. Zofran Oral. --16:37 Nell Mejia R.N. Medication/allergy information source: the patient. --16:33 Nell Mejia R.N. Allergies Penicillin. --16:26 Nell Mejia R.N. History Arrived by private vehicle. Historian: patient. Unaccompanied. Primary physician (Jackie). Onset. (about 2 weeks). Describes the quality as "pain". Relates location as generalized across abdomen. SOCIAL HX: Former smoker. Regular alcohol use; consumes beer and wine. History of drug use: marijuana. FALL RISK ASSESSMENT: Fall risk assessment completed. No fall risk identified. FUNCTIONAL ASSESSMENT: Functional assessment: no impairments noted. LEARNING NEEDS ASSESSMENT: The learning needs assessment revealed no barriers. --16:33 Nell Mejia R.N. PROBLEMS: Renal Colic. Fractured Metatarsal. Prior Injury, Same Area. Substance Abuse. Constipation. Abdominal Pain. Diverticulosis. Asthma. Gastroesophageal Reflux. Crush Injury. Hernia. Laceration. Soft Tissue Foreign Body. Contusion. Hypertension. Gastroesophageal Reflux Disease. Immunizations. Tetanus Status. --16:27 Nell Mejia R.N. Ureterolithiasis [RuleOut]. Hematuria [RuleOut]. --16:27 Nell Mejia R.N. ADDITIONAL SURGERIES: Hernia Repair. Stomach foreign body removed. --16:27 Nell Mejia R.N. Assessment GENERAL / NEURO / PSYCH: Alert. Oriented X 4. Appears in no acute distress. Patient appears calm and cooperative. RESPIRATORY: Respirations not labored. SKIN: Skin is warm and dry. --16:33 Nell Mejia R.N. Interventions ID and allergy band on patient. To treatment room. --16:33 Nell Mejia R.N. PHYSICAL ASSESSMENT 16:36 01/09/17. Ambulatory to room. Patient gowned. GENERAL / NEURO / PSYCH: Alert. Oriented X 4. Appears in no acute distress. RESPIRATORY: Respirations not labored. SKIN: Skin is warm and dry. --16:36 Nell Mejia R.N. NURSING PROGRESS NOTES 16:36 01/09/17. Patient gowned. Head of bed elevated. Call light placed in reach. Side rails up x 1. Bed placed in lowest position. Brakes of bed on. --16:36 Nell Mejia R.N. 16:40 01/09/2017 Site #1 started via IV in the right hand with an 20g angiocath, with aseptic technique and good blood return; one attempt. Blood drawn: rainbow set. Labeled in the presence of the patient and sent to the lab. Saline lock flushed with 10 mL saline. --16:52 Temo Yung R.N. 16:45 01/09/2017 Started bag #1 1000 mL IV Fluids IV NS (Saline); bolus of 1000 mL over 45 minute(s) via site #1. Allergies verified and confirmed 5 rights. IV patency established. IV site checked: no pain, redness, or swelling. IV flushed thoroughly pre- and post-medication administration. --16:52 Tmeo Yung R.N. 16:45 01/09/2017 Toradol IVP 30 mg given over 1 minute(s) via site #1. Allergies verified and confirmed 5 rights. IV patency established. IV site checked: no pain, redness, or swelling. IV flushed thoroughly pre- and post-medication administration. IVP given by RN. --16:53 Temo Yung R.N. 17:15 01/09/2017 Toradol IVP Response: no adverse reaction pain is improving. --17:15 Temo Yung R.N. 17:40 01/09/2017 IV Fluids IV NS Bag Change: bag #1 completed. Total amount infused: 1000. STARTED bag #2 (1000 mL) at 1000 mL/hr. Confirmed 5 rights. IV patency established. IV site checked: no pain, redness, or swelling. IV flushed thoroughly. --17:41 Temo Yung R.N. Patient walked to [place] with tech. (@[id number]). --18:09 Temo Yung R.N. 18:40 01/09/2017 IV Fluids IV NS Discontinued: bag #2 infused. Total amount infused: 1000 mL. --18:47 Lona Anguiano. DISPOSITION / DISCHARGE 18:40 01/09/2017 Site #1 removed upon discharge. Bandage applied. --18:43 Temo Yung R.N. Departure time: 18:41. Condition at departure: improved and stable. No learning barriers present. Discharge instructions provided and reviewed with the patient. Reviewed warnings. Reviewed medication(s). Reviewed referrals. Patient verbalized understanding. Written instructions provided in Polish. The patient was discharged by the physician assistant real estate manager. He was discharged home. He left the Emergency Department ambulatory and via private vehicle. Patient driving. --18:44 Temo Yung R.N. 18:38 01/09/17. BP: 148/106. HR: 78. RR: 16. O2 saturation: 98% on room air. Temp: 98.1 F (oral). Pain level now: 11/12. --18:44 Temo Yung R.N. Locked/Released at 01/09/2017 18:47 by Lona Anguiano,
--- NOTE | 2017-01-09 16:56 | ED NURSING NOTES ---
Clinical Report - Nurses [facility] [place] [address] 01/09/2017 16:14 Patient: TIM TAPIA TRIAGE Triage time 16:25. Acuity: LEVEL 3. Chief Complaint: ABDOMINAL PAIN. Alert. No acute distress. ROSARIO COMA SCORE: [place] Coma Scale: 15- eyes open spontaneously (4); best verbal response- oriented x 4 (5); best motor response- obeys commands (6). --16:33 Nell Mejia R.N. 16:25 01/09/17. BP: 135/99. HR: 88. RR: 16. O2 saturation: 97% on room air. Temp: 98.3 F (oral). Pain level now: 02/12. --16:33 Nell Mejia R.N. Weight: 96.1 kg stated. Height/Length: 72 inches Per Patient. BMI: 28.8. --16:32 Nell Mejia R.N. Medications Omeprazole Oral. Ventolin HFA Inhalation, as needed. --16:26 Nell Mejia R.N. Flomax Oral. Percocet Oral. Zofran Oral. --16:37 Nell Mejia R.N. Medication/allergy information source: the patient. --16:33 Nell Mejia R.N. Allergies Penicillin. --16:26 Nell Mejia R.N. History Arrived by private vehicle. Historian: patient. Unaccompanied. Primary physician (Jackie). Onset. (about 2 weeks). Describes the quality as "pain". Relates location as generalized across abdomen. SOCIAL HX: Former smoker. Regular alcohol use; consumes beer and wine. History of drug use: marijuana. FALL RISK ASSESSMENT: Fall risk assessment completed. No fall risk identified. FUNCTIONAL ASSESSMENT: Functional assessment: no impairments noted. LEARNING NEEDS ASSESSMENT: The learning needs assessment revealed no barriers. --16:33 Nell Mejia R.N. PROBLEMS: Renal Colic. Fractured Metatarsal. Prior Injury, Same Area. Substance Abuse. Constipation. Abdominal Pain. Diverticulosis. Asthma. Gastroesophageal Reflux. Crush Injury. Hernia. Laceration. Soft Tissue Foreign Body. Contusion. Hypertension. Gastroesophageal Reflux Disease. Immunizations. Tetanus Status. --16:27 Nell Mejia R.N. Ureterolithiasis [RuleOut]. Hematuria [RuleOut]. --16:27 Nell Mejia R.N. ADDITIONAL SURGERIES: Hernia Repair. Stomach foreign body removed. --16:27 Nell Mejia R.N. Assessment GENERAL / NEURO / PSYCH: Alert. Oriented X 4. Appears in no acute distress. Patient appears calm and cooperative. RESPIRATORY: Respirations not labored. SKIN: Skin is warm and dry. --16:33 Nell Mejia R.N. Interventions ID and allergy band on patient. To treatment room. --16:33 Nell Mejia R.N. PHYSICAL ASSESSMENT 16:36 01/09/17. Ambulatory to room. Patient gowned. GENERAL / NEURO / PSYCH: Alert. Oriented X 4. Appears in no acute distress. RESPIRATORY: Respirations not labored. SKIN: Skin is warm and dry. --16:36 Nell Mejia R.N. NURSING PROGRESS NOTES 16:36 01/09/17. Patient gowned. Head of bed elevated. Call light placed in reach. Side rails up x 1. Bed placed in lowest position. Brakes of bed on. --16:36 Nell Mejia R.N. 16:40 01/09/2017 Site #1 started via IV in the right hand with an 20g angiocath, with aseptic technique and good blood return; one attempt. Blood drawn: rainbow set. Labeled in the presence of the patient and sent to the lab. Saline lock flushed with 10 mL saline. --16:52 Temo Yung R.N. 16:45 01/09/2017 Started bag #1 1000 mL IV Fluids IV NS (Saline); bolus of 1000 mL over 45 minute(s) via site #1. Allergies verified and confirmed 5 rights. IV patency established. IV site checked: no pain, redness, or swelling. IV flushed thoroughly pre- and post-medication administration. --16:52 Temo Yung R.N. 16:45 01/09/2017 Toradol IVP 30 mg given over 1 minute(s) via site #1. Allergies verified and confirmed 5 rights. IV patency established. IV site checked: no pain, redness, or swelling. IV flushed thoroughly pre- and post-medication administration. IVP given by RN. --16:53 Temo Yung R.N. 17:15 01/09/2017 Toradol IVP Response: no adverse reaction pain is improving. --17:15 Temo Yung R.N. 17:40 01/09/2017 IV Fluids IV NS Bag Change: bag #1 completed. Total amount infused: 1000. STARTED bag #2 (1000 mL) at 1000 mL/hr. Confirmed 5 rights. IV patency established. IV site checked: no pain, redness, or swelling. IV flushed thoroughly. --17:41 Temo Yung R.N. Patient walked to [place] with tech. (@[id number]). --18:09 Temo Yung R.N. 18:40 01/09/2017 IV Fluids IV NS Discontinued: bag #2 infused. Total amount infused: 1000 mL. --18:47 Lona Anguiano. DISPOSITION / DISCHARGE 18:40 01/09/2017 Site #1 removed upon discharge. Bandage applied. --18:43 Temo Yung R.N. Departure time: 18:41. Condition at departure: improved and stable. No learning barriers present. Discharge instructions provided and reviewed with the patient. Reviewed warnings. Reviewed medication(s). Reviewed referrals. Patient verbalized understanding. Written instructions provided in Wolof. The patient was discharged by the physician graduate research assistant. He was discharged home. He left the Emergency Department ambulatory and via private vehicle. Patient driving. --18:44 Temo Yung R.N. 18:38 01/09/17. BP: 148/106. HR: 78. RR: 16. O2 saturation: 98% on room air. Temp: 98.1 F (oral). Pain level now: 11/12. --18:44 Temo Yung R.N. Locked/Released at 01/09/2017 18:47 by Lona Anguiano,
--- NOTE | 2017-01-09 16:56 | ED ORDER SUMMARY ---
..... Patient: TIM TAPIA OrderSheet VisitID: [id number] [place] [address] 46y, M Registration Date/Time: 01/09/2017 ORDER SHEET Weight: 96.1 kg (stated) Allergies: Penicillin GENERAL ORDERS: CBC w Diff Urgent (16:32 01/09/2017 EKoroleva P.A.-C) (Ack 16:41 KHoerner) (16:51 JSimbeck R.N.) CMP Urgent (16:32 01/09/2017 EKoroleva P.A.-C) (Ack 16:41 KHoerner) (16:51 JSimbeck R.N.) UA-Culture if indicated Urgent (16:32 01/09/2017 EKoroleva P.A.-C) (Ack 16:41 KHoerner) (17:35 JSimbeck R.N.) Amylase Urgent (16:32 01/09/2017 EKoroleva P.A.-C) (Ack 16:41 KHoerner) (16:51 JSimbeck R.N.) Lipase Urgent (16:32 01/09/2017 EKoroleva P.A.-C) (Ack 16:41 KHoerner) (16:51 JSimbeck R.N.) CT Abd/Pel w Cont (No) (see lab) Urgent (17:59 01/09/2017 EKoroleva P.A.-C) (18:20 MCampbell) MEDICATION ORDERS: IV FLUIDS: IV NS : initial bolus 1000 mL (1000 mL/hr), then 1000 mL/hr for X1 (NOW); Willie (16:32 01/09/2017 EKoroleva P.A.-C) (16:52 JSimbeck R.N.) Toradol IV 30 mg (NOW) (16:32 01/09/2017 EKoroleva P.A.-C) (16:53 JSimbeck R.N.) ORDER SHEET NOTES: [Electronically signed by Lona Anguiano (18:47 01/09/2017)] [Electronically signed by KoroleKaren hernandez P.A.-C (19:11 01/09/2017)] [Electronically locked/signed by Lona Anguiano (18:47 01/09/2017)]
--- NOTE | 2017-01-09 16:56 | ED CLINICAL REPORT ---
Clinical Report - Physicians/Mid Levels [facility] [address] [place] [address] 01/09/2017 16:14 Patient: TIM TAPIA Time Seen: 16:34 Jan 09 2017. Arrived- By private vehicle. Historian- patient. HISTORY OF PRESENT ILLNESS Chief Complaint: ABDOMINAL PAIN. This started 3 days and is still present. It is described as "pain" and it is described as located in the right abdomen and left abdomen and in the periumbilical area. The patient has had nausea and loss of appetite. No vomiting or diarrhea. (Generalized abdominal pain over the last 2 days worsening. Patient recently seen in the emergency department, symptoms of his left flank improved. He has not been seen anywhere else. Denies any diarrhea.). REVIEW OF SYSTEMS No constipation, black stools, difficulty with urination, pain with urination or urinary frequency. No fever, headache, sore throat, chest pain or difficulty breathing. No chills. All systems otherwise negative, except as recorded above. PAST HISTORY Problems: Renal Colic. Fractured Metatarsal. Prior Injury, Same Area. Substance Abuse. Constipation. Abdominal Pain. Diverticulosis. Asthma. Gastroesophageal Reflux. Crush Injury. Hernia. Laceration. Soft Tissue Foreign Body. Contusion. Hypertension. Gastroesophageal Reflux Disease. Immunizations. Tetanus Status. Ureterolithiasis [RuleOut]. Hematuria [RuleOut]. Additional Surgeries: Hernia Repair. Stomach foreign body removed. Medications: Flomax Oral. Percocet Oral. Zofran Oral. Omeprazole Oral. Ventolin HFA Inhalation, as needed. Allergies: Penicillin. SOCIAL HISTORY Former smoker. Alcohol use. History of drug use: marijuana. ADDITIONAL NOTES The nursing notes have been reviewed. PHYSICAL EXAM Vital Signs: 01/09/2017 16:25 BP: 135/99. HR: 88. RR: 16. O2 saturation: 97%. Temp: 98.3 F. Pain level now: 8/10. Appearance: Alert. Eyes: Eyes normal inspection. ENT: Nose normal. Pharynx normal. Neck: Normal inspection. CVS: Normal heart rate and rhythm. Heart sounds normal. Respiratory: No respiratory distress. Breath sounds normal. No decreased air movement. Abdomen: Soft. Mild tenderness in the epigastric area. No guarding or Topete's sign present. Bowel sounds normal. Back: Normal inspection. No CVA tenderness. Extremities: Extremities exhibit normal ROM. No lower extremity edema. Neuro: Oriented X 3. No motor deficit. LABS, X-RAYS, AND EKG Abdominal CT: IMPRESSION: 1. Negative CT abdomen. 2. Moderate sigmoid diverticulosis, but no evidence of diverticulitis. 3. Findings called to ARNOLDO Nielsen. All CT scans at this facility use dose modulation, iterative reconstruction, and/or weight-based dosing when appropriate to reduce radiation dose to as low as reasonably achievable. Electronically Final signed by:Gabriel Kennedy MD 01/09/2017 6:17:00 PM. Laboratory Tests: UA-Culture if indicated: (CAMI: 01/09/2017 17:30) ( [facility] 01/09/2017 17:58) Final results Test Result Flag Units (Reference) URINE COLOR YELLOW URINE APPEARANCE CLEAR URINE GLUCOSE NEGATIVE (NEGATIVE) URINE BILIRUBIN NEGATIVE (NEGATIVE) URINE KETONE NEGATIVE (NEGATIVE) URINE SPECIFIC GRAVITY 1.020 (1.010-1.030) URINE PH 6.0 (5.0-8.0) URINE PROTEIN NEGATIVE (NEGATIVE) URINE UROBILINOGEN 0.2 EU/dL (0.2-1.0) URINE NITRITE NEGATIVE (NEGATIVE) URINE BLOOD NEGATIVE (NEGATIVE) URINE LEUK ESTERASE NEGATIVE (NEGATIVE) URINE RBC NONE SEEN rbc/hpf (0-1) URINE WBC 0-1 wbc/hpf (0-1) URINE EPITHELIAL CELLS 0-1 EPI/hpf (0-5) URINE BACTERIA NONE SEEN (NONE SEEN) URINE COMMENT CULT NOT INDICATED 1+ MUCUSURINE CULTURES ARE SET-UP BASED ON THE FOLLOWING CRITERIA:POSITIVE NITRITEPOSITIVE LEUKOCYTE ESTERASEGREATER THAN 10 WHITE BLOOD CELLSMODERATE (2+) OR GREATER BACTERIA CBC w Diff: (CAMI: 01/09/2017 16:40) ( [facility] 01/09/2017 16:57) Final results Test Result Flag Units (Reference) WHITE BLOOD COUNT 9.9 K/uL (4.5-11.5) RED BLOOD COUNT 4.50 M/uL (4.50-5.90) HEMOGLOBIN 14.5 gm/dL (13.5-17.5) HEMATOCRIT 42.4 % (41.0-53.0) MEAN CELL VOLUME 94 fL (80-100) MEAN CORPUSCULAR HGB 32 pg (26-34) MEAN CORPUSCULAR HGB CONC 34 g/dL (31-37) RED CELL DISTRIBUTION WIDTH 13.7 % (11.6-14.8) PLATELET COUNT 249 K/uL (150-400) NEUTROPHIL % 77.0 H % (50-75) LYMPH % 16.6 L % (25-40) MONO % 5.3 % (3-14) EOSINOPHIL % 0.6 % (0-4) BASOPHIL % 0.5 % (0-2) CMP: (CAMI: 01/09/2017 16:40) ( [facility] 01/09/2017 17:18) Final results Test Result Flag Units (Reference) GLUCOSE 108 mg/dL (70-110) BUN 9 mg/dL (7-18) CREATININE 1.0 mg/dL (0.6-1.3) Estimated GFR >60 mL/min Estimated GFR- >60 mL/min Note: Persistent reduction over 3 months in eGFR<60 mL/min/1.73 m2 defines CKD. Patients with eGFR values>=60 mL/min/1.73 m2 may also have CKD if evidence ofpersistent proteinuria. Additional information may be foundat www.kidney.org. SODIUM 142 mmol/L (136-145) POTASSIUM 3.7 mmol/L (3.5-5.1) CHLORIDE 104 mmol/L (98-107) CARBON DIOXIDE 24 mmol/L (21-32) CALCIUM 8.7 mg/dL (8.5-10.1) TOTAL PROTEIN 7.8 g/dL (6.4-8.2) ALBUMIN 4.2 g/dL (3.3-5.0) BILIRUBIN, TOTAL 0.7 mg/dL (0.0-1.0) ALKALINE PHOSPHATASE 78 U/L (46-116) AST (SGOT) 18 U/L (15-37) ALT (SGPT) 36 U/L (12-78) LIPASE 81 U/L (73-393) AMYLASE 40 U/L (25-115) . PROGRESS AND PROCEDURES Course of Care: Patient with resolution of previously 90 area, labs unremarkable in the emergency department. CT abdomen neg . No guarding or peritoneal signs. Able to tolerate by mouth fluid. No diarrhea. No signs of diverticulitis. No indication for further workup or antibiotics. During the time in the ED, the following DDX were considered: acute surgical abdomen, hemodynamic or metabolic instability, dehydration, gastroenteritis-viral, food borne, or bacterial, food intolerance, irritable or inflammatory bowel, infection, sepsis. Patient is stable. Physical exam findings are improved. Symptoms better. Patient/family counseled. Disposition: Discharged. CLINICAL IMPRESSION Acute abdominal pain of unknown cause. INSTRUCTIONS Drink plenty of fluids. Prescription Medications: Zofran (orally disintegrating tablets) 4 mg: take 1-2 orally every 6 hours for 5 days as needed for nausea. Dispense fifteen (15). No refill. Substitution is permissible. Ultram 50 mg: take 1 orally every 6 hours for 3 days, as needed for pain. Dispense fifteen (15). No refills. Substitution is permissible. Follow-up: Follow up with your doctor Thursday. (Electronically signed by Karen Dubois P.A.-C 01/09/2017 19:11)
--- NOTE | 2017-01-09 18:22 | DIAGNOSTIC IMAGING REPORT ---
PROCEDURE: CT ABD/PELVIS WITH CONTRAST INDICATION: Abdominal pain. History of stones. TECHNIQUE: 125 ml of Isovue 300 were injected intravenously and axial images were obtained of the entire abdomen and pelvis with sagittal and coronal reformations. COMPARISON: Comparison made to renal ultrasound on 12/28/[address] abdomen and pelvis on 04/19/2015. FINDINGS: ABDOMEN: Gallbladder, liver, spleen, pancreas, kidneys, and aorta are stable and appear normal. Bowel pattern is normal. Appendix is not clearly identified , but no evidence of inflammatory process. Mild to moderate degenerative changes of the lower lumbar spine. PELVIS: Moderate sigmoid diverticulosis. No evidence of diverticulitis Pelvic structures are otherwise normal. No evidence of free fluid. IMPRESSION: 1. Negative CT abdomen. 2. Moderate sigmoid diverticulosis, but no evidence of diverticulitis. 3. Findings called to ARNOLDO Nielsen. All CT scans at this facility use dose modulation, iterative reconstruction, and/or weight-based dosing when appropriate to reduce radiation dose to as low as reasonably achievable.
--- NOTE | 2017-01-09 19:11 | ED DISCHARGE INSTRUCTIONS ---
Patient: TIM TAPIA General Instructions [facility] VisitID: [id number] [place] [address] 46y, M Registration Date/Time: 01/09/2017 Acute abdominal pain of unknown cause. INSTRUCTIONS Drink plenty of fluids. Prescription Medications: Zofran (orally disintegrating tablets) 4 mg: take 1-2 orally every 6 hours for 5 days as needed for nausea. Dispense fifteen (15). No refill. Substitution is permissible. Ultram 50 mg: take 1 orally every 6 hours for 3 days, as needed for pain. Dispense fifteen (15). No refills. Substitution is permissible. Follow-up: Follow up with your doctor Thursday. ADDITIONAL INFORMATION Abdominal Pain,Uncertain Cause [Male] Based on your visit today, the exact cause of your abdominalpain is not clear. Your exam and tests do not indicate a dangerous cause at this time. However, the signs of a serious problem may take more time to appear. Although your evaluation was reassuring today, sometimes early in the course of many conditions, exam and lab tests can appear normal. Therefore, it is important for you to watch for any new symptoms or worsening of your condition. Causes It may not be obvious what caused your symptoms. Pay attention to things that do seem to make your symptoms worse or better and discuss this with your doctor when you follow up. Diagnosis The evaluation of abdominal pain in the emergency department may onlyrequire an exam by the doctor or it may include blood, urine or imaging studies, depending on many factors. Sometimes exams and tests can identify a cause but in many cases, a clear cause is not found. Further testing at follow up visits may help to suggest a clear diagnosis. Home Care Rest as much as possible until your next exam. Try to avoid any medications (unless otherwise directed by your doctor), foods, activities, or other factors that you may have contributed to your symptoms. Try to eat foods that you know that you have tolerated well in the past. Certain diets may be recommended for some conditions that cause abdominal pain. However, since the cause of your symptoms may not be clear, discuss your diet more with your primary care provider or specialist for further recommendations. Eating several small meals per day as opposed to 2 or 3 larger meals may help. Monitor closely for anything that may make your symptoms worse or better. Pay close attention to symptoms below that may indicate worsening of your condition. Follow Up and Precautions See your doctoras instructed or sooneror if your symptoms are not improving.In some cases, you may need more testing. When to Seek Medical Attention Contact your doctor or see medical attention ifany of the following occur: Pain is becoming worse You are unable to take your medications due to excessive vomiting Swelling of the abdomen Fever of 100.4F (38C) or higher, or as directed by your health care provider Blood in vomit or bowel movements (dark red or black color) Jaundice (yellow color of eyes and skin) New onset of weakness, dizziness or fainting New onset of chest, arm, back, neck or jaw pain Symptoms With Uncertain Cause [Adult] Based on the exam and any tests that were performed today, the exact cause of your symptoms is not certain. While your condition does not seem serious, the signs of a serious problem may take more time to appear. Therefore, it is important for you to watch for any new symptoms or worsening of your condition.Follow up with your doctor or this facility, as directed.A repeat physical exam or additional testing at a later time may uncover a cause for your symptoms that is not evident today. Home Care: Resume your usual activities and diet when this feels comfortable to do so. Follow Up with your doctor, or as advised by our staff.Contact your doctor sooner if your symptoms do not begin to improve in the next few days. [NOTE: If you had an x-ray, CT scan, ultrasound, or ECG (electrocardiogram), it will be reviewed by a specialist. You will be notified of any new findings that may affect your care.] Get Prompt Medical Attention if any of the following occur: Current symptoms get worse New symptoms appear [place] Diet A bland diet is used for patients with an upset stomach. It consists of foods that are mild and easy to digest. It is better to eat small frequent meals rather than three large meals a day. BEVERAGES OK: Fruit juices, non-caffeinated teas and coffee, non-carbonated almaraz AVOID: Carbonated beverage, caffeinated tea and coffee, all alcoholic beverages BREAD OK: Refined white, wheat or rye bread, danny or soda crackers, Tawana toast, plain rolls, bagels AVOID: Whole-grain bread CEREAL OK: Refined cereals: cooked or ready to eat AVOID: Whole grain cereals and granola, or those containing bran, seeds or nuts DESSERTS OK: Peanut butter and all others except those to "avoid" AVOID: Chocolate, cocoa, coconut, popcorn, nuts, seeds, jam, marmalade FRUITS OK: Canned, cooked, frozen or fresh fruits without seeds or tough skin AVOID: Olives, skin and seeds of fruit MEATS OK: All fresh or preserved meat, fish and fowl AVOID: Any that are prepared with those spices to "avoid" CHEESE & EGGS OK: Eggs, cottage cheese, cream cheese, other cheeses AVOID: All cheeses made with those spices to "avoid" POTATOES & PASTA OK: Potato, rice, macaroni, noodles, spaghetti AVOID: None SOUPS OK: All soups without heavy seasoning AVOID: Soups made with those spices to "avoid" VEGETABLES OK: Canned, cooked, fresh or frozen mildly flavored vegetables without seeds, skins or coarse fiber AVOID: Vegetables prepared with those spices to "avoid"; skin and seeds of vegetables and those with coarse fiber SPICES OK: Salt, lemon and [place] juice, vinegar, all extracts, abel, cinnamon, thyme, mace, allspice, paprika AVOID: Lewis powder, cloves, pepper, seed spices, garlic, gravy pickles, highly seasoned salad dressings Clear Liquid Diet Clear liquids are any liquid that you can see through as well as those that are very easy to digest. This is used while the body is recovering from irritation or infection of the stomach or intestinal tract. It may also be used before special procedures or surgery. This diet is to be used no more than three days. You may include the following items. Adults Adults should drink a total of 23 quarts of liquid per day. It may be easier to drink small frequent servings rather than a few large ones. Liquids can include: Fruit juices.Strained orange juice or lemonade (no pulp), apple, grape and cranberry juice, clear fruit drinks, sports drinks Beverages.Sport drinks, sodas, mineral water (plain or flavored), tea, black coffee, liquid gelatin (add twice the recommended amount of water) Soups.Clear broth, consomm, bouillon Desserts.Plain gelatin, popsicles, fruit juice bars Children Over 2 years old The following liquids are acceptable for children over age 2: Fruit juices.Strained orange juice or lemonade (no pulp), apple, grape and cranberry juice, clear fruit drinks Beverages. Sports drinks, sodas, mineral water (plain or flavored), tea, liquid gelatin (add twice the recommended amount of water) Soups. Clear broth, consomm, bouillon Desserts. Plain gelatin, popsicles, fruit juice bars Children under 2 years old Oral rehydration fluids such are available at drug stores and most grocery stores without a prescription. You have been given the following additional information: Abdominal Pain, Unknown Cause, (Male) Symptoms With Uncertain Cause Diet, [place] (Adult) Diet, Clear Liquid (Electronically signed by Karen Dubois P.A.-C 01/09/2017 19:11)
--- NOTE | 2017-01-09 19:11 | ED MED RECONCILIATION SUMMARY ---
Patient: TIM TAPIA Medication Reconciliation Report [facility] VisitID: [id number] [address] [place] [address] 46y, M Registration Date/Time: 01/09/2017 Weight: 96.1 kg Height/Length: 72 in. BMI: 28.8 ALLERGIES: Penicillin The patient's Home Medications are listed below: THE FOLLOWING MEDICATIONS NEED TO BE RECONCILED: Flomax Oral Omeprazole Oral Percocet Oral Ventolin HFA Inhalation Zofran Oral The source(s) of the original Home Medication information: patient The following Medications were given to the patient in the Emergency Department: IV NS IV Fluids bolus 1000 mL over 45 minute(s), administered: 01/09/2017 4:45:00 PM Toradol [IVP] IVP 30 mg, administered: 01/09/2017 4:45:00 PM The following Medications were prescribed to the patient: Zofran (orally disintegrating tablets) 4 mg: take 1-2 orally every 6 hours for 5 days as needed for nausea. Dispense fifteen (15). No refill. Substitution is permissible. -- Karen Dubois, P.A.-C Ultram 50 mg: take 1 orally every 6 hours for 3 days, as needed for pain. Dispense fifteen (15). No refills. Substitution is permissible. -- Karen Dubois, P.A.-C
--- NOTE | 2017-01-09 19:11 | ED MAR SUMMARY ---
..... Medication Administration Record [facility] [address] [place] [address] Patient: TIM TAPIA Visit ID: [id number] 46y, M Weight: 96.1 kg Height/Length: 72 in BMI: 28.8 ALLERGIES: Penicillin Start 16:45 01/09/2017 Temo Yung R.N., Stop 18:40 01/09/2017 Lona Anguiano, Medication Administered: IV NS (SALINE), Dose: IV Fluids, Bolus: 1000 mL over 45 minute(s), Dispensed: 1000 mL bag, Site: #1 right hand. Medication Ordered: IV NS : initial bolus 1000 mL (1000 mL/hr), then 1000 mL/hr for X1 (NOW); Willie. Given 16:45 01/09/2017 Temo Yung R.N. Medication Administered: TORADOL [IVP], Dose: 30 mg IVP over 1 minute(s), Site: #1 right hand. Medication Ordered: Toradol IV 30 mg (NOW).
--- NOTE | 2017-01-09 19:11 | ED MED RECONCILIATION SUMMARY ---
Patient: TIM TAPIA Medication Reconciliation Report [facility] VisitID: [id number] [address] [place] [address] 46y, M Registration Date/Time: 01/09/2017 Weight: 96.1 kg Height/Length: 72 in. BMI: 28.8 ALLERGIES: Penicillin The patient's Home Medications are listed below: THE FOLLOWING MEDICATIONS NEED TO BE RECONCILED: Flomax Oral Omeprazole Oral Percocet Oral Ventolin HFA Inhalation Zofran Oral The source(s) of the original Home Medication information: patient The following Medications were given to the patient in the Emergency Department: IV NS IV Fluids bolus 1000 mL over 45 minute(s), administered: 01/09/2017 4:45:00 PM Toradol [IVP] IVP 30 mg, administered: 01/09/2017 4:45:00 PM The following Medications were prescribed to the patient: Zofran (orally disintegrating tablets) 4 mg: take 1-2 orally every 6 hours for 5 days as needed for nausea. Dispense fifteen (15). No refill. Substitution is permissible. -- Karen Dubois, P.A.-C Ultram 50 mg: take 1 orally every 6 hours for 3 days, as needed for pain. Dispense fifteen (15). No refills. Substitution is permissible. -- Karen Dubois, P.A.-C
--- NOTE | 2017-01-09 19:11 | ED MAR SUMMARY ---
..... Medication Administration Record [facility] [address] [place] [address] Patient: TIM TAPIA Visit ID: [id number] 46y, M Weight: 96.1 kg Height/Length: 72 in BMI: 28.8 ALLERGIES: Penicillin Start 16:45 01/09/2017 Temo Yung R.N., Stop 18:40 01/09/2017 Lona Anguiano, Medication Administered: IV NS (SALINE), Dose: IV Fluids, Bolus: 1000 mL over 45 minute(s), Dispensed: 1000 mL bag, Site: #1 right hand. Medication Ordered: IV NS : initial bolus 1000 mL (1000 mL/hr), then 1000 mL/hr for X1 (NOW); Willie. Given 16:45 01/09/2017 Teom Yung R.N. Medication Administered: TORADOL [IVP], Dose: 30 mg IVP over 1 minute(s), Site: #1 right hand. Medication Ordered: Toradol IV 30 mg (NOW).
== END 2017-01-09 18:41 | disposition home or self-care (01) ==
LOC: ED SRH 16:14
DX: R10.13 Epigastric pain (principal); K21.9 Gastro-esophageal reflux disease without esophagitis; I10 Essential (primary) hypertension; J45.909 Unspecified asthma, uncomplicated; Z79.899 Other long term (current) drug therapy; Z87.891 Personal history of nicotine dependence; Z88.0 Allergy status to penicillin
CPT/HCPCS: 90004; 90100; 92235; 92530; 95059